=== PATIENT | female | born 1975 | race Hispanic/Latino ===

== ENCOUNTER → 2017-10-13 | Day surgery (SDC) | payer BC ==
[~2017-10-13] MED LIST: ADDERALL 30 MG30 MG; ALPRAZOLAM0.5 MG PO; FENTANYL CITRATE/PF 100MCG/2 ML INJ ONE; HYOSCYAMINE SULFATE 0.5 MG/ML AMP ONE; LIDOCAINE HCL 2% LOCAL INJ 5 ML SDV VIAL INJ ONE; MIDAZOLAM HCL 2 MG/2 ML VIAL ONE; PROPOFOL IV EMULSION 10 MG/ML 50 ML VIAL ONE; TUMERIC TEA
[2017-10-13 12:32] LABS: WBC,FECAL (FECAL LACTOFERRIN) POSITIVE (NEGATIVE)
--- NOTE | 2017-10-13 12:46 | Operative Report ---
DATE OF PROCEDURE: October 13, 2017 REFERRING PHYSICIAN: Dr. Ritesh Lynch. PROCEDURE PERFORMED: Colonoscopy with biopsies. INDICATIONS FOR COLONOSCOPY: Colorectal cancer screening, personal history of colon polyps, and history of ulcerative colitis. MEDICATION: Patient was done under MAC. Please see anesthesiologist's note. PROCEDURE: With the patient in left lateral decubitus position, the flexible fiberoptic Olympus colonoscope was inserted into the rectum with ease and advanced all the way to the cecum. Mucosa overlying the cecum appeared to be within normal limits. The ileocecal valve was intubated and the scope was advanced into the terminal ileum. Biopsies were obtained. The scope was then withdrawn back into the colon. It was then withdrawn slowly. Mucosa overlying the ascending and the transverse appeared to be within normal limits. The mucosa overlying the descending, sigmoid, and rectum revealed some patchy [id number] inflammatory changes and random biopsies were obtained. The scope was then retroflexed into the distal rectum and small internal hemorrhoids were noted, none of which is actively bleeding. The scope was then straightened out and was subsequently withdrawn after securing an adequate stool specimen that was sent for the appropriate stool studies. Patient tolerated the procedure well. IMPRESSION 1. Colitis, [id number], left colon, biopsies obtained. 2. Proctitis, biopsied. 3. Internal hemorrhoids, none actively bleeding. PLAN: Follow up histology. Follow up stool studies. Initiate Apriso 0.375 mg 4 tablets p.o. daily. Patient will need a surveillance colonoscopy after 3 to 4 months of treatment. Job#: [id number] RAMY cc:DR. RITESH LYNCH
[2017-10-13 14:37] LABS: C DIFFICILE TOXIN A&B AMP PROB NEGATIVE (NEGATIVE)
== END | disposition home or self-care (01) ==
LOC: OR 08:40
PROVIDERS: ATTEND Internal Medicine Gastroenterology
DX: Z12.11 Encounter for screening for malignant neoplasm of colon (principal); Z86.010 Personal history of colon polyps; Z87.19 Personal history of other diseases of the digestive system; H20.9 Unspecified iridocyclitis; I10 Essential (primary) hypertension; K62.89 Other specified diseases of anus and rectum; K51.50 Left sided colitis without complications; K64.8 Other hemorrhoids
CPT/HCPCS: 45380; 81025; 83630; 83993; 87045; 87177; 87328; 87493; J1980; J2001; J2250; 45378